=== PATIENT | male | born 1990 | race African-American/Black ===

== ENCOUNTER 2021-06-23 13:00 | Emergency (ER) | payer OTHER ==
[~2021-06-23] VITALS: Ht 172.7 cm; Wt 138.6 kg
[2021-06-23 14:17] VITALS: BP 141/96; PULSE 83; TEMP 98.3
== END 2021-06-23 17:35 | disposition home or self-care (01) ==
LOC: COL.ER 13:00
DX: R07.81 Pleurodynia (principal); M54.50 Low back pain, unspecified; R07.89 Other chest pain; V49.40XA Driver injured in collision with unspecified motor vehicles in traffic accident, initial encounter